=== PATIENT | male | born 1990 | race Caucasian/White ===

== ENCOUNTER 2017-07-31 16:01 | Emergency (ER) | payer BC, OTHER ==
[~2017-07-31] VITALS: Ht 177.8 cm; Wt 63.5 kg
[2017-07-31 16:32] LABS: ABSOLUTE LYMPHOCYTES 1.1 thou/uL (0.8-5.3); ABSOLUTE MONOCYTES 0.7 thou/uL (0.0-1.2); ABSOLUTE NEUTROPHILS 6.2 thou/uL (1.6-8.1); BASOPHILS 0.1 %; EOSINOPHILS 0.5 %; HEMATOCRIT 42.3 % (42.0-52.0); HEMOGLOBIN 14.6 gm/dL (14.0-18.0); LYMPHOCYTES 13.8 %; MCH 30.1 pg (26.0-34.0); MCHC 34.6 g/dL (28.0-37.0); MONOCYTES 8.4 %; MPV 9.5 fl. (7.2-11.1); NUCLEATED RBCS 0 /100WBC; PLATELET COUNT* 178 thou/uL (150-400); POLYS 77.2 %; RBC 4.86 mil/uL (4.50-6.00); RDW-CV 12.7 % (10.5-14.5)
[2017-07-31 16:42] LABS: CALCIUM 9.4 mg/dL (8.5-10.1); CREATININE 0.7 mg/dL (0.6-1.3); POTASSIUM 3.2 mmol/L (3.5-5.1)
[2017-07-31 16:46] LABS: ALBUMIN 4.3 g/dL (3.4-5.0); TOTAL BILIRUBIN 0.7 mg/dL (<0.1-1.0); TOTAL PROTEIN 7.4 g/dL (6.4-8.2)
[2017-07-31] MEDS ORDERED: ZOFRAN ODT4 MG PO (17:10)
[2017-07-31 17:28] VITALS: BP 136/72
--- NOTE | 2017-08-01 17:26 | EKG ---
[place] [address] ELECTROCARDIOGRAM REPORT Name: PAMELA JAVIER Room: [facility]#: [id number] Admission: 07/31/17 Attend Phys: Discharge: 07/31/17 Date of : [birth year] Report #: [id number] THIS REPORT FOR: //name// [facility] ED Test Date: 2017-07-31 Test Time: 16:05:41 Pat Name: PAMELA JAVIER Department: Room: Gender: M Ophthalmic Asst: : 1990 Requested By: Abril Park Order Number: [id number] MD: Michi Ceja Measurements Intervals [place] Rate: 108 P: 76 CA: 120 QRS: 77 QRSD: 71 T: 39 QT: 308 QTc: 413 Interpretive Statements Sinus tachycardia RSR' in V1 or V2, probably normal variant Borderline T wave abnormalities No previous ECG available for comparison Electronically Signed On 08-01-2017 17:26:01 [employer] by Michi Ceja [email or web address] <ELECTRONICALLY SIGNED> By: Michi Ceja MD, [facility] 08/01/17 1726 1605 1605 Michi Ceja MD, FACC /EPI
== END 2017-07-31 17:29 | disposition home or self-care (01) ==
LOC: M.ERS 16:01
PROVIDERS: Physician Assistant
DX: R11.2 Nausea with vomiting, unspecified (principal); R07.89 Other chest pain

== ENCOUNTER 2017-11-25 00:35 | Emergency (ER) | payer OTHER ==
[~2017-11-25] VITALS: Ht 177.8 cm; Wt 63.5 kg
[~2017-11-25 00:35] MED LIST: ZOFRAN ODT4 MG PO
[2017-11-25 01:24] LABS: ABSOLUTE EOSINOPHILS 0.1 thou/uL (0.0-0.7); ABSOLUTE LYMPHOCYTES 2.2 thou/uL (0.8-5.3); ABSOLUTE NEUTROPHILS 9.9 thou/uL (1.6-8.1); BASOPHILS 0.4 %; EOSINOPHILS 0.9 %; HEMATOCRIT 46.1 % (42.0-52.0); HEMOGLOBIN 15.4 gm/dL (14.0-18.0); LYMPHOCYTES 16.8 %; MCH 29.4 pg (26.0-34.0); MCHC 33.5 g/dL (28.0-37.0); MONOCYTES 7.7 %; MPV 9.7 fl. (7.2-11.1); NUCLEATED RBCS 0 /100WBC; PLATELET COUNT* 182 thou/uL (150-400); POLYS 74.2 %; RBC 5.24 mil/uL (4.50-6.00); RDW-CV 12.7 % (10.5-14.5); WBC 13.3 thou/uL (4.0-11.0)
[2017-11-25 01:37] LABS: CALCIUM 9.2 mg/dL (8.5-10.1); CREATININE 0.8 mg/dL (0.6-1.3); POTASSIUM 3.4 mmol/L (3.5-5.1)
[2017-11-25 01:41] LABS: ALBUMIN 4.4 g/dL (3.4-5.0); TOTAL BILIRUBIN 0.3 mg/dL (<0.1-1.0); TOTAL PROTEIN 7.9 g/dL (6.4-8.2)
[2017-11-25 01:56] LABS: URINE BILIRUBIN NEGATIVE (Negative); URINE BLOOD NEGATIVE (Negative); URINE CLARITY CLEAR; URINE COLOR YELLOW; URINE GLUCOSE-RANDOM NEGATIVE (Negative); URINE KETONES NEGATIVE (Negative); URINE LEUKOCYTES-REFLEX NEGATIVE (Negative); URINE NITRITE-REFLEX NEGATIVE (Negative); URINE PROTEIN TRACE (Negative); URINE UROBILINOGEN 0.2 E.U./dl (0.2-1.0)
[2017-11-25] MEDS ORDERED: BENTYL 20 MG TA20 M1 PO (02:59)
[2017-11-25] MEDS ORDERED: IBU800 MG PO (02:59)
[2017-11-25 03:07] VITALS: BP 124/73
[2017-11-25] MEDS ORDERED: ZOFRAN ODT4 MG PO (11:51)
== END 2017-11-25 03:08 | disposition home or self-care (01) ==
LOC: M.ERS 00:35
PROVIDERS: Emergency Medicine Emergency Medical Services
DX: R10.32 Left lower quadrant pain (principal); Z87.442 Personal history of urinary calculi

== ENCOUNTER 2017-11-25 09:13 | Emergency (ER) | payer OTHER ==
[~2017-11-25] VITALS: Ht 177.8 cm; Wt 63.5 kg
[~2017-11-25 09:13] MED LIST changes: +BENTYL 20 MG TA20 M1 PO; +IBU800 MG PO
[2017-11-25 10:29] LABS: HEMATOCRIT 43.6 % (42.0-52.0); HEMOGLOBIN 15.1 gm/dL (14.0-18.0); MCH 30.1 pg (26.0-34.0); MCHC 34.7 g/dL (28.0-37.0); MCV 86.8 fL (80.0-100.0); MPV 9.6 fl. (7.2-11.1); NUCLEATED RBCS 0 /100WBC; PLATELET COUNT* 179 thou/uL (150-400); RBC 5.03 mil/uL (4.50-6.00); RDW-CV 12.6 % (10.5-14.5); WBC 10.8 thou/uL (4.0-11.0)
[2017-11-25 10:48] LABS: ABSOLUTE EOSINOPHILS 0.1 thou/uL (0.0-0.7); ABSOLUTE LYMPHOCYTES 0.1 thou/uL (0.8-5.3); ABSOLUTE MONOCYTES 0.8 thou/uL (0.0-1.2); ABSOLUTE NEUTROPHILS 9.8 thou/uL (1.6-8.1); PLATELET ESTIMATE ADEQUATE
[2017-11-25 10:56] LABS: CREATININE 0.8 mg/dL (0.6-1.3); POTASSIUM 3.3 mmol/L (3.5-5.1)
[2017-11-25 11:00] LABS: ALBUMIN 4.2 g/dL (3.4-5.0); TOTAL PROTEIN 7.6 g/dL (6.4-8.2)
[2017-11-25 11:02] LABS: URINE BILIRUBIN NEGATIVE (Negative); URINE BLOOD NEGATIVE (Negative); URINE CLARITY CLEAR; URINE COLOR YELLOW; URINE GLUCOSE-RANDOM NEGATIVE (Negative); URINE KETONES NEGATIVE (Negative); URINE LEUKOCYTES-REFLEX NEGATIVE (Negative); URINE NITRITE-REFLEX NEGATIVE (Negative); URINE PROTEIN 1+ (Negative); URINE UROBILINOGEN 0.2 E.U./dl (0.2-1.0)
[2017-11-25 11:22] LABS: BACTERIA-REFLEX None Seen /HPF (None Seen); CASTS None Seen /LPF (None Seen); CRYSTALS None Seen /LPF (None Seen); MUCUS None Seen strn/LPF (None Seen); SQUAMOUS 0-3 Few /LPF (0-3); URINE RBC 0-2 Rare /HPF (0-2); URINE WBC-REFLEX 0-5 Rare /HPF (0-5)
[2017-11-25] MEDS ORDERED: ZOFRAN ODT4 MG PO (11:51)
[2017-11-25 12:22] VITALS: BP 112/69
== END 2017-11-25 12:22 | disposition home or self-care (01) ==
LOC: M.ERS 09:13
PROVIDERS: Emergency Medicine
DX: K52.9 Noninfective gastroenteritis and colitis, unspecified (principal); Z87.442 Personal history of urinary calculi

== ENCOUNTER 2018-02-17 21:51 | Emergency (ER) | payer OTHER ==
[~2018-02-17] VITALS: Ht 177.8 cm; Wt 63.5 kg
[2018-02-17] MEDS ORDERED: ZOFRAN ODT4 MG SUBLING (22:27)
[2018-02-17 22:39] VITALS: BP 148/77
== END 2018-02-17 22:41 | disposition home or self-care (01) ==
LOC: M.ERS 21:51
DX: S61.432A Puncture wound without foreign body of left hand, initial encounter (principal); Z87.442 Personal history of urinary calculi; W22.8XXA Striking against or struck by other objects, initial encounter; Y93.89 Activity, other specified; Y92.89 Other specified places as the place of occurrence of the external cause; Y99.8 Other external cause status

== ENCOUNTER 2018-06-19 19:42 | Emergency (ER) | payer BC, OTHER ==
[~2018-06-19] VITALS: Ht 177.8 cm; Wt 59.0 kg
[~2018-06-19 19:42] MED LIST changes: +ZOFRAN ODT4 MG SUBLING
[2018-06-19] MEDS ORDERED: ZYRTEC10 M5 PO (19:59)
[2018-06-19] MEDS ORDERED: ANTIVERT25 MG PO (20:00)
[2018-06-19 20:01] LABS: URINE BILIRUBIN NEGATIVE (Negative); URINE BLOOD NEGATIVE (Negative); URINE CLARITY CLEAR; URINE COLOR YELLOW; URINE GLUCOSE-RANDOM NEGATIVE (Negative); URINE KETONES NEGATIVE (Negative); URINE LEUKOCYTES-REFLEX NEGATIVE (Negative); URINE NITRITE-REFLEX NEGATIVE (Negative); URINE PROTEIN NEGATIVE (Negative); URINE SPECIFIC GRAVITY 1.015 (1.005-1.030)
[2018-06-19 20:34] LABS: ABSOLUTE EOSINOPHILS 0.1 thou/uL (0.0-0.7); ABSOLUTE LYMPHOCYTES 2.5 thou/uL (0.8-5.3); ABSOLUTE MONOCYTES 0.7 thou/uL (0.0-1.2); ABSOLUTE NEUTROPHILS 5.3 thou/uL (1.6-8.1); BASOPHILS 0.2 %; HEMATOCRIT 42.7 % (42.0-52.0); HEMOGLOBIN 14.5 gm/dL (14.0-18.0); LYMPHOCYTES 29.1 %; MCH 29.6 pg (26.0-34.0); MCHC 34.1 g/dL (28.0-37.0); MCV 86.9 fL (80.0-100.0); MONOCYTES 7.6 %; MPV 9.5 fl. (7.2-11.1); NUCLEATED RBCS 0 /100WBC; PLATELET COUNT* 215 thou/uL (150-400); POLYS 62.1 %; RBC 4.91 mil/uL (4.50-6.00); RDW-CV 12.6 % (10.5-14.5); WBC 8.6 thou/uL (4.0-11.0)
[2018-06-19 20:36] LABS: CALCIUM 9.1 mg/dL (8.5-10.1); CREATININE 0.9 mg/dL (0.6-1.3); POTASSIUM 3.2 mmol/L (3.5-5.1)
[2018-06-19 20:40] LABS: ALBUMIN 4.6 g/dL (3.4-5.0); TOTAL BILIRUBIN 0.4 mg/dL (<0.1-1.0); TOTAL PROTEIN 7.9 g/dL (6.4-8.2)
[2018-06-19] MEDS ORDERED: ZANAFLEX2 MG PO (21:45)
[2018-06-19] MEDS ORDERED: IBU600 MG PO (21:45)
[2018-06-19] MEDS ORDERED: ZOFRAN ODT4 MG PO (21:46)
[2018-06-19 22:02] VITALS: BP 121/58
== END 2018-06-19 22:04 | disposition home or self-care (01) ==
LOC: M.ERS 19:42
PROVIDERS: Nurse Practitioner Family
DX: S76.212A Strain of adductor muscle, fascia and tendon of left thigh, initial encounter (principal); S76.211A Strain of adductor muscle, fascia and tendon of right thigh, initial encounter; R07.89 Other chest pain; Z87.442 Personal history of urinary calculi; X58.XXXA Exposure to other specified factors, initial encounter; Y93.89 Activity, other specified; Y92.89 Other specified places as the place of occurrence of the external cause; Y99.8 Other external cause status

== ENCOUNTER 2018-10-01 22:32 | Inpatient (IN) | payer BC ==
[~2018-10-01] VITALS: Ht 177.8 cm; Wt 67.1 kg
[~2018-10-01 22:32] MED LIST changes: +ANTIVERT25 MG PO; +IBU600 MG PO; +ZANAFLEX2 MG PO; +ZYRTEC10 M5 PO
[2018-10-01 22:36] VITALS: BP 122/51
[2018-10-01] MEDS ORDERED: XANAX 0.5 MG0.5 MG PO (22:43)
[2018-10-01 23:00] LABS: HEMATOCRIT 47.8 % (42.0-52.0); HEMOGLOBIN 16.3 gm/dL (14.0-18.0); MCH 29.7 pg (26.0-34.0); MCHC 34.1 g/dL (28.0-37.0); MCV 87.2 fL (80.0-100.0); MPV 9.6 fl. (7.2-11.1); NUCLEATED RBCS 0 /100WBC; PLATELET COUNT* 208 thou/uL (150-400); RBC 5.48 mil/uL (4.50-6.00); RDW-CV 13.3 % (10.5-14.5)
[2018-10-01 23:11] LABS: ALBUMIN 4.9 g/dL (3.4-5.0); CALCIUM 9.9 mg/dL (8.5-10.1); CREATININE 1.2 mg/dL (0.6-1.3); POTASSIUM 3.3 mmol/L (3.5-5.1); TOTAL BILIRUBIN 0.7 mg/dL (<0.1-1.0); TOTAL PROTEIN 8.7 g/dL (6.4-8.2)
[2018-10-01 23:19] LABS: ABSOLUTE EOSINOPHILS 0.2 thou/uL (0.0-0.7); ABSOLUTE LYMPHOCYTES 0.2 thou/uL (0.8-5.3); ABSOLUTE MONOCYTES 0.9 thou/uL (0.0-1.2); ABSOLUTE NEUTROPHILS 15.8 thou/uL (1.6-8.1); PLATELET ESTIMATE ADEQUATE
[2018-10-01 23:41] LABS: URINE BILIRUBIN NEGATIVE (Negative); URINE BLOOD NEGATIVE (Negative); URINE CLARITY CLEAR; URINE COLOR YELLOW; URINE GLUCOSE-RANDOM NEGATIVE (Negative); URINE KETONES 1+ (Negative); URINE LEUKOCYTES-REFLEX NEGATIVE (Negative); URINE NITRITE-REFLEX NEGATIVE (Negative); URINE PROTEIN TRACE (Negative); URINE SPECIFIC GRAVITY 1.015 (1.005-1.030); URINE UROBILINOGEN 0.2 E.U./dl (0.2-1.0)
[2018-10-01 23:49] LABS: AMP/METHAMP Negative (Negative); BARBITURATES Negative (Negative); BENZODIAZEPINES POSITIVE (Negative); COCAINE Negative (Negative); METHADONE Negative (Negative); OPIATES POSITIVE (Negative); PCP Negative (Negative); THC Negative (Negative)
[2018-10-02 02:00] VITALS: BP 112/78
[2018-10-02 03:00] VITALS: BP 119/68
--- NOTE | 2018-10-02 04:18 | NUR ---
RECEIVED REPORT FROM ED RN. PT TRANSFERRED TO 211. PT A&OX4. VSS. SECOND COOK AND BAKER IN PLACE. ADMISSION HISTORY & PHYSICAL ASSESSMENT COMPLETED AND CHARTED. FALL FORM SIGNED. PT ON RA WITH 99% O2 SAT. PT TRACING ST ON TELE. PT UPSTANDBY. INSTRUCTED ON CLEAR LIQUID DIET. COMMUNICATES UNDERSTANDING. ORIENTED TO ROOM & CALL LIGHT. PT RESTED WELL ON BED. CALL LIGHT WITHIN REACH.
[2018-10-02 08:07] VITALS: BP 113/63
[2018-10-02 12:55] VITALS: BP 117/53
--- NOTE | 2018-10-02 13:43 | EKG ---
[place] [address] ELECTROCARDIOGRAM REPORT Name: PAMELA JAVIER Room: [address] ADM IN .R.#: [id number] Admission: 10/02/18 Attend Phys: Conner Case MD Discharge: Date of : [birth year] Report #: [id number] THIS REPORT FOR: //name// [facility] ED Test Date: 2018-10-01 Test Time: 23:13:07 Pat Name: PAMELA JAVIER Department: Room: [facility] Gender: Clinical Assistant Professor: Ximena ARTEAGA : 1990 Requested By: Nico García Order Number: [id number] MD: Michi Ceja Measurements Intervals [place] Rate: 110 P: 76 SD: 144 QRS: 79 QRSD: 67 T: 46 QT: 308 QTc: 417 Interpretive Statements Sinus tachycardia Compared to ECG 07/31/2017 16:05:41 T-wave abnormality no longer present Electronically Signed On 10-02-2018 13:43:44 CDT by Michi Ceja [email or web address] <ELECTRONICALLY SIGNED> By: Michi Ceja MD, [facility] 10/02/18 1343 12 12 Michi Ceja MD, FACC /EPI
--- NOTE | 2018-10-02 14:17 | NUR ---
PT VSS THIS SHIFT. PT WENT FOR MRI AND CAME BACK WITH NAUSEA. PT PROVIDED WITH IV ZOFRAN AND FLUIDS RESTARTED. PT TOLERATING RA AT THIS TIME. WILL PROVIDE WITH POTASSIUM AND OTHER MEDS AFTER NAUSEA RESOLVES AND PT IS ABLE TO EAT. WILL CONTINUE TO MONITOR AND ASSESS.
--- NOTE | 2018-10-02 15:23 | NUR ---
Pt is A&O. Resides at home with his girlfriend. Normally active and independent. No DME. No hx of HH or SNF. Goal is home at [facility].
[2018-10-02 17:21] VITALS: BP 116/65
--- NOTE | 2018-10-02 18:38 | NUR ---
PT HAS CONTINUED N/V THIS SHIFT, MEDICATIONS PROVIDED AND SCOPOLOMINE PATCH APPLIED BEHIND L EAR. PT VSS WITH ELEVATED TEMP THIS AM, NO FLU VACCINE PROVIDED DUE TO ELEVATED TEMP. PT DID NOT WANT XANAX AND SAID HE WOULD TAKE IT THIS EVENING. PT RUNNING ST ON THE MONITOR AND IS UP WITH SBA DUE TO POSSIBLE SEIZURE ACTIVITY. SEIZURE PXN IN PLACE ON RA AT THIS TIME. PT RESTING AND HAS NOT HAD MORE THAN CLD AT THIS TIME DUE TO SLEEPING AND N/V. WILL CONTINUE TO MONITOR AND ASSESS
[2018-10-02 20:00] VITALS: BP 113/74
[2018-10-03] VITALS: BP 99/57
[2018-10-03 04:00] VITALS: BP 104/53
--- NOTE | 2018-10-03 04:40 | NUR ---
ASSUMED CARE OF PT AFTER REPORT AT 1930. PT A&OX4. VSS. PHYSICAL ASSESSMENT COMPLETED AND CHARTED. PT ON RA WITH 95% O2 SAT. PT TRACING SR ON TELE. PT UPSTANDBY. PT DENIES ANY PAIN OR DISCOMFORT. NO EPISODE OF DIARRHEA OR NAUSEA AT THIS TIME. PT RESTED WELL ON BED. CALL LIGHT WITHIN REACH.
[2018-10-03 05:24] LABS: HEMATOCRIT 36.7 % (42.0-52.0); MCH 29.9 pg (26.0-34.0); MCV 88.1 fL (80.0-100.0); MPV 9.6 fl. (7.2-11.1); RBC 4.16 mil/uL (4.50-6.00); RDW-CV 13.2 % (10.5-14.5); WBC 6.4 thou/uL (4.0-11.0)
[2018-10-03 05:37] LABS: HEMOGLOBIN 12.5 gm/dL (14.0-18.0)
[2018-10-03 05:40] LABS: CALCIUM 8.2 mg/dL (8.5-10.1); CREATININE 0.9 mg/dL (0.6-1.3); MAGNESIUM 1.8 mg/dL (1.8-2.4); POTASSIUM 3.6 mmol/L (3.5-5.1)
[2018-10-03 08:00] VITALS: BP 108/67
--- NOTE | 2018-10-03 10:16 | EEG ---
[address] [address] EEG STUDY REPORT Name: PAMELA JAVIER Room: [address] IN M.R.#: [id number] Admission: 10/02/18 Attend Phys: Conner Case MD Discharge: Date of : [birth year] Report #: [id number] THIS REPORT FOR: //name// CC: FAM physician/PCP Conner Case DATE OF SERVICE: 10/02/2018 This patient is being evaluated for seizure. EEG was done by placing the electrode by standard 10-20 system of electrode placement. Both referential and sequential montages were used for recording. Background activity in this patient's EEG is about 9 Hz and 30 microvolts. It was a symmetrical activity. The patient became drowsy that is associated with bilateral slowing and vertex sharp waves. Photic stimulation was unremarkable. Throughout the record, no active epileptiform activity was noticed. IMPRESSION: This patient's EEG does not show any active epileptiform activity and was unremarkable. It might be mentioned that EEG can be normal in a patient with seizure disorder. <ELECTRONICALLY SIGNED> By: Christian Page MD 10/03/18 1016 0910 [id number] Page MD /nt
--- NOTE | 2018-10-03 10:16 | CON ---
[address] [address] CONSULTATION Name: CONCEPCIONPAMELA R Room: [address] IN M.R.#: [id number] Admission: 10/02/18 Attend Phys: Conner Case MD Discharge: Date of : [birth year] Report #: [id number] THIS REPORT FOR: //name// CC: [place] physician/PCP Conner Case DATE OF SERVICE: 10/02/2018 HISTORY OF PRESENT ILLNESS: This is a 28-year-old male patient who was evaluated for seizure. 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 He was having up to 20 stools per night and was severely nauseous and having vomiting. His fiancee found him in the bathroom. He had not fallen because she did not hear any thud. It looks like he slowly lowered himself to the ground and was lying there without any injury. She noticed a 30-second of tonic-clonic activity. She did not try to see his blood pressure and pulse. REVIEW OF SYSTEMS: Indicate that this patient has a known history of anxiety and he takes medications for that, he takes Lexapro. The dose of Lexapro was changed about a month ago because his anxiety was becoming worse. He also takes Xanax. He had a big anxiety and panic attack just before this episode and he took some extra dose of Xanax. There is no evidence that there was any withdrawal from benzo to explain the seizure. He does have a history of kidney stone. Otherwise, he is pretty healthy. His vertigo was relatively recent associated with this viral syndrome. REVIEW OF SYSTEMS: Fourteen-point review of system was otherwise noncontributory. PAST MEDICAL HISTORY: Negative for any seizure. It is also negative for any vasovagal spell. He does have some history of headaches in the past. FAMILY HISTORY: Unremarkable. SOCIAL HISTORY: Denies abuse of alcohol. PHYSICAL EXAMINATION: Indicate he is alert. He is responsive. He is able to follow simple commands. His speech looks intact. His cranial nerve examination 2-12 is unremarkable. Strength, sensation, reflexes and tone is symmetrical. There is no cerebellar sign. There is no meningeal sign. There is no carotid bruit. He has no thyroid mass. He is a well-developed individual who does not have any dysmorphic features of eyes, ears and face. His vision and hearing looks adequate. His pulses are nicely palpable. He has no edema, cyanosis or jaundice. His last blood pressure was 119/68. His blood [place] [address] CONSULTATION Name: PAMELA JAVIER Room: [address] IN M.R.#: [id number] Admission: 10/02/18 Attend Phys: Conner Case MD Discharge: Date of : 89 Report #: [id number] LABORATORY DATA: White count is 17 and his potassium is low at 3.3. IMPRESSION: This patient does appear to have a seizure by history. This seizure appeared to be secondary to his generalized condition including possible vasovagal spell, which would have ultimately led to a seizure. It is also possible dehydration caused some hemodynamic instability and led to seizure. It is very difficult to be certain of, but does look like he had a seizure. He needs some further workup. RECOMMENDATIONS: 1. MRI of the brain. 2. EEG. 3. Await this workup. 4. I discussed with his that by [place] he will not be able to drive for 6 months because he had a seizure. He understands that. I will order this test and see what this test shows. Dr. Christine will be making rounds from tomorrow and he will follow up this patient from tomorrow. <ELECTRONICALLY SIGNED> By: Christian Page MD 10/03/18 1016 1052 [id number] Page MD /nt
[2018-10-03 11:48] VITALS: BP 104/53
--- NOTE | 2018-10-03 12:09 | NUR ---
PATIENT ALERT DENIES DISTRESS DISCHQARGED HOME INSTRUCTIONS GIVEN.
== END 2018-10-03 12:27 | disposition home or self-care (01) | DRG 101 ==
LOC: M.ERS 22:32 → M.2W 10-02 01:00 → M.TBA-ER 10-02 01:00 → M.2W 10-02 02:16
PROVIDERS: Emergency Medicine; Internal Medicine; ADMIT Family Medicine
DX: R56.9 Unspecified convulsions (principal); A08.4 Viral intestinal infection, unspecified; F41.0 Panic disorder [episodic paroxysmal anxiety]; Z79.899 Other long term (current) drug therapy

== ENCOUNTER 2019-01-10 13:53 | Emergency (ER) | payer BC ==
[~2019-01-10] VITALS: Ht 177.8 cm; Wt 63.5 kg
[~2019-01-10 13:53] MED LIST changes: +XANAX 0.5 MG0.5 MG PO
[2019-01-10] MEDS ORDERED: LEXAPRO 10 MG T10 M1 PO (14:04)
[2019-01-10] MEDS ORDERED: XYZAL5 MG PO (14:07)
[2019-01-10] MEDS ORDERED: MEDROL DOSPAK21 TA1 PO (14:21)
[2019-01-10] MEDS ORDERED: CYCLOBENZAPRINE5 MG PO (14:21)
[2019-01-10 14:35] VITALS: BP 140/95
== END 2019-01-10 14:35 | disposition home or self-care (01) ==
LOC: M.ERS 13:53
DX: M54.2 Cervicalgia (principal); F41.0 Panic disorder [episodic paroxysmal anxiety]; Z87.442 Personal history of urinary calculi

== ENCOUNTER 2019-04-21 20:29 | Emergency (ER) | payer BC ==
[~2019-04-21] VITALS: Ht 177.8 cm
[~2019-04-21 20:29] MED LIST changes: +CYCLOBENZAPRINE5 MG PO; +LEXAPRO 10 MG T10 M1 PO; +MEDROL DOSPAK21 TA1 PO; +XYZAL5 MG PO
[2019-04-21] MEDS ORDERED: XANAX 0.5 MG0.5 MG (20:37)
[2019-04-21 21:16] LABS: ABSOLUTE EOSINOPHILS 0.1 thou/uL (0.0-0.7); ABSOLUTE LYMPHOCYTES 1.9 thou/uL (0.8-5.3); ABSOLUTE NEUTROPHILS 8.7 thou/uL (1.6-8.1); BASOPHILS 0.2 %; EOSINOPHILS 0.5 %; HEMATOCRIT 39.3 % (42.0-52.0); HEMOGLOBIN 13.6 gm/dL (14.0-18.0); LYMPHOCYTES 16.1 %; MCH 29.7 pg (26.0-34.0); MCHC 34.4 g/dL (28.0-37.0); MCV 86.4 fL (80.0-100.0); MONOCYTES 8.8 %; MPV 9.6 fl. (7.2-11.1); NUCLEATED RBCS 0 /100WBC; PLATELET COUNT* 141 thou/uL (150-400); POLYS 74.4 %; RBC 4.56 mil/uL (4.50-6.00); RDW-CV 12.8 % (10.5-14.5); WBC 11.7 thou/uL (4.0-11.0)
[2019-04-21 21:24] LABS: ANION GAP 9 mmol/L (7-16); BUN 7 mg/dL (7-18); CALCIUM 8.9 mg/dL (8.5-10.1); CHLORIDE 100 mmol/L (98-107); CO2 26 mmol/L (21-32); CREATININE 0.8 mg/dL (0.6-1.3); GLUCOSE 124 mg/dL (70-99); POTASSIUM 3.2 mmol/L (3.5-5.1); SODIUM 135 mmol/L (136-145)
[2019-04-21 21:25] LABS: URINE BILIRUBIN NEGATIVE (Negative); URINE BLOOD TRACE (Negative); URINE CLARITY CLEAR; URINE COLOR YELLOW; URINE GLUCOSE-RANDOM NEGATIVE (Negative); URINE KETONES 1+ (Negative); URINE LEUKOCYTES-REFLEX NEGATIVE (Negative); URINE NITRITE-REFLEX NEGATIVE (Negative); URINE PROTEIN NEGATIVE (Negative); URINE UROBILINOGEN 0.2 E.U./dl (0.2-1.0)
[2019-04-21 21:34] LABS: ALBUMIN 4.2 g/dL (3.4-5.0); ALKALINE PHOSPHATASE 68 U/L (46-116); LIPASE 69 U/L (73-393); SGOT 15 U/L (15-37); SGPT 19 U/L (30-65); TOTAL BILIRUBIN 0.5 mg/dL (<0.1-1.0); TOTAL PROTEIN 7.5 g/dL (6.4-8.2); TROPONIN-I LEVEL <0.06 ng/mL (<0.06)
[2019-04-21 21:42] LABS: AMP/METHAMP Negative (Negative); BARBITURATES Negative (Negative); BENZODIAZEPINES POSITIVE (Negative); COCAINE Negative (Negative); METHADONE Negative (Negative); OPIATES Negative (Negative); PCP Negative (Negative); THC Negative (Negative)
[2019-04-21] MEDS ORDERED: ZOFRAN ODT4 MG PO (21:42)
[2019-04-21 23:11] VITALS: BP 128/74
--- NOTE | 2019-04-22 10:29 | EKG ---
[place] [address] ELECTROCARDIOGRAM REPORT Name: PAMELA JAVIER Room: [facility]#: [id number] Admission: 04/21/19 Attend Phys: Discharge: 04/21/19 Date of : [birth year] Report #: [id number] THIS REPORT FOR: //name// [facility] ED Test Date: 2019-04-21 Test Time: 20:34:39 Pat Name: PAMELA JAVIER Department: Room: Gender: M Director Of Institutional Sales: EMERSON : 1990 Requested By: Eber Jones Order Number: [id number] MD: Tanner Thomas Measurements Intervals [place] Rate: 122 P: -19 IN: 148 QRS: -24 QRSD: 79 T: 11 QT: 306 QTc: 436 Interpretive Statements Sinus tachycardia Probable left atrial enlargement Probable left ventricular hypertrophy consider Inferior infarct, old Compared to ECG 10/01/2018 23:13:07 Myocardial infarct finding now present Electronically Signed On 04-22-2019 10:29:18 CDT by Tanner Thomas [email or web address] <ELECTRONICALLY SIGNED> By: Tanner Thomas MD, [facility] 04/22/19 1029 33 33 Tanner Thomas MD, FAC /EPI
== END 2019-04-21 23:12 | disposition home or self-care (01) ==
LOC: M.ERS 20:29
PROVIDERS: Physician Assistant
DX: R11.2 Nausea with vomiting, unspecified (principal); R19.7 Diarrhea, unspecified; F41.0 Panic disorder [episodic paroxysmal anxiety]; F41.1 Generalized anxiety disorder; Z87.442 Personal history of urinary calculi